=== PATIENT | male | born 1965 | race Caucasian/White ===

== ENCOUNTER 2017-07-01 09:42 | Observation (INO) | payer OTHER ==
[2017-07-01] MEDS ORDERED: CEFAZOLIN 2 GM/50 ML (PMX) 50 ML IVPB (10:30)
[2017-07-01] MEDS ORDERED: SOD CHLORIDE 0.9% 1,000 ML IV (10:30)
[2017-07-01 10:45] LABS: ADD MAN DIFF? NO
[2017-07-01 10:49] LABS: BASOPHIL # 0.1 10^3/ul (0.0-0.1); BASOPHILS % 0.6 % (0.0-2.0); EOSINOPHILS % 0.3 % (0.0-7.0); HEMOGLOBIN 15.4 g/dl (14.0-18.0); LYMPHOCYTES # 1.9 10^3/ul (0.8-2.9); LYMPHOCYTES % 18.3 % (15.0-51.0); MEAN CORPUSCULAR HEMOGLOBIN 29.1 pg (29.0-33.0); MEAN CORPUSCULAR HGB CONC 34.2 g/dl (32.0-37.0); MEAN CORPUSCULAR VOLUME 84.9 fl (82.0-101.0); MEAN PLATELET VOLUME 9.5 fl (7.4-10.4); MONOCYTE # 0.8 10^3/ul (0.3-0.9); MONOCYTES % 7.5 % (0.0-11.0); NEUTROPHIL # 7.6 10^3/ul (1.6-7.5); PLATELET COUNT 423 10^3/UL (140-415); RED CELL DISTRIBUTION WIDTH 12.6 % (11.5-14.5)
[2017-07-01 10:49] LABS: WHITE BLOOD COUNT 10.4 10^3/ul (4.8-10.8)
[2017-07-01 11:10] LABS: INR 0.98; PARTIAL THROMBOPLASTIN TIME 29.7 Sec (25.0-35.0); PROTIME 13.1 Sec (11.9-14.9)
[2017-07-01 11:12] LABS: ALANINE AMINOTRANSFERASE 32 IU/L (13-69); ALBUMIN 4.6 g/dl (3.3-4.9); ALBUMIN/GLOBULIN RATIO 1.27; ALKALINE PHOSPHATASE 86 IU/L (42-121); ANION GAP 14 (8-16); ASPARTATE AMINO TRANSFERASE 27 IU/L (15-46); BILIRUBIN,INDIRECT 0.6 mg/dl (0-1.1); BILIRUBIN,TOTAL 0.6 mg/dl (0.2-1.3); CARBON DIOXIDE 25 mmol/L (21-31); CHLORIDE 105 mmol/L (97-110); GLUCOSE 108 mg/dl (70-220); TOTAL PROTEIN 8.2 g/dl (6.1-8.1)
[2017-07-01 11:13] LABS: BLOOD UREA NITROGEN 16 mg/dl (7-20); CALCIUM 9.5 mg/dl (8.4-10.2); CREATININE 1.02 mg/dl (0.61-1.24); POTASSIUM 3.8 mmol/L (3.5-5.1); SODIUM 140 mmol/L (135-144)
[2017-07-01] MEDS ORDERED: MIDAZOLAM 1 MG/ML 2 ML INJ (11:54)
[2017-07-01] MEDS ORDERED: ROPIVACAINE 0.5 % 30 ML VIAL ×2 (11:54→12:22)
[2017-07-01] MEDS ORDERED: FENTAnyl 50 MCG/ML VIAL ×2 (11:54→14:06)
[2017-07-01] MEDS ORDERED: PROPOFOL 20 ML (11:54)
[2017-07-01] MEDS ORDERED: ROCURONIUM 50 MG INJ (12:22)
[2017-07-01] MEDS ORDERED: POLYMYXIN/BACITRACIN 1L IRRIG (12:34)
[2017-07-01] MEDS ORDERED: DEXAMETHASONE 4 MG/ML 1 ML INJ (12:53)
[2017-07-01] MEDS ORDERED: METOCLOPRAMIDE 10 MG INJ (12:53)
[2017-07-01] MEDS ORDERED: KETOROLAC 30 MG INJ (12:53)
[2017-07-01] MEDS ORDERED: ONDANSETRON 4 MG INJ (12:53)
[2017-07-01] MEDS ORDERED: CEFAZOLIN 1 GM INJ (12:53)
[2017-07-01] MEDS ORDERED: SUGAMMADEX SODIUM 200 MG/2 ML VIAL IV (12:54)
[2017-07-01] MEDS: POLYMYXIN/BACITRACIN 1L IRRIG IRR (13:20)
[2017-07-01] MEDS ORDERED: DIPHENHYDRAMINE 50 MG INJ IV (13:30)
[2017-07-01] MEDS ORDERED: EPHEDrine SULFATE 50 MG/5 ML SYG IV (13:30)
[2017-07-01] MEDS ORDERED: FENTAnyl 50 MCG/ML VIAL IV ×3 (13:30)
[2017-07-01] MEDS ORDERED: hydrALAzine 20 MG INJ IV ×2 (13:30→17:00)
[2017-07-01] MEDS ORDERED: OXYCODONE/ACETAMINOPHEN (5/325) TAB PO ×2 (13:30)
[2017-07-01] MEDS ORDERED: HYDROmorphONE (0.2 MG/ML) 10ML SYG IV ×2 (13:30)
[2017-07-01] MEDS ORDERED: METOCLOPRAMIDE 10 MG INJ IV (13:30)
[2017-07-01] MEDS ORDERED: LABETALOL HCL 20MG INJ IV (13:30)
[2017-07-01] MEDS ORDERED: MEPERIDINE 25 MG INJ IV (13:30)
[2017-07-01] MEDS ORDERED: ONDANSETRON 4 MG INJ IV ×2 (13:30→15:00)
[2017-07-01] MEDS ORDERED: ACETAMINOPHEN 1000MG/100ML IV 100 ML (13:44)
[2017-07-01] MEDS ORDERED: HYDROmorphONE 0.2 MG/ML PCA IV (14:00)
[2017-07-01] MEDS ORDERED: NALOXONE (0.4 MG/ML) INJ IV (14:00)
[2017-07-01] MEDS: HYDROmorphONE (0.2 MG/ML) 10ML SYG IV ×3 (14:30→15:36)
[2017-07-01] MEDS: HYDROmorphONE 0.2 MG/ML PCA IV (15:04)
[2017-07-01] MEDS: D5W-0.45 NACL + KCL 20 MEQ 1,000 ML IV (16:52)
[2017-07-01 20:21] LABS: ALANINE AMINOTRANSFERASE 30 IU/L (13-69); ALBUMIN 4.4 g/dl (3.3-4.9); ALBUMIN/GLOBULIN RATIO 1.46; ALKALINE PHOSPHATASE 74 IU/L (42-121); ANION GAP 18 (8-16); ASPARTATE AMINO TRANSFERASE 29 IU/L (15-46); BILIRUBIN,INDIRECT 0.7 mg/dl (0-1.1); BILIRUBIN,TOTAL 0.7 mg/dl (0.2-1.3); BLOOD UREA NITROGEN 13 mg/dl (7-20); CALCIUM 8.4 mg/dl (8.4-10.2); CARBON DIOXIDE 26 mmol/L (21-31); CHLORIDE 103 mmol/L (97-110); GLUCOSE 176 mg/dl (70-220); POTASSIUM 4.6 mmol/L (3.5-5.1); SODIUM 142 mmol/L (135-144); TOTAL PROTEIN 7.4 g/dl (6.1-8.1)
[2017-07-01] MEDS: INSULIN ASPART [NOVOLOG] 3 ML PEN SC (20:57)
[2017-07-01] MEDS ORDERED: INSULIN GLARGINE [LANtus] 3 ML PEN SC (21:00)
[2017-07-01] MEDS: INSULIN GLARGINE [LANtus] 3 ML PEN SC (21:56)
[2017-07-02] MEDS: D5W-0.45 NACL + KCL 20 MEQ 1,000 ML IV ×4 (00:56→17:26)
[2017-07-02] MEDS: ACCU-CHEK XX (02:00)
[2017-07-02 07:18] LABS: ANION GAP 14 (8-16); BLOOD UREA NITROGEN 9 mg/dl (7-20); CALCIUM 8.4 mg/dl (8.4-10.2); CARBON DIOXIDE 26 mmol/L (21-31); CHLORIDE 106 mmol/L (97-110); GLUCOSE 125 mg/dl (70-220); POTASSIUM 4.5 mmol/L (3.5-5.1); SODIUM 141 mmol/L (135-144)
[2017-07-02] MEDS: INSULIN ASPART [NOVOLOG] 3 ML PEN SC ×4 (08:00→21:00)
[2017-07-02] MEDS: HYDROmorphONE 0.2 MG/ML PCA IV (11:07)
[2017-07-02] MEDS ORDERED: GLUCOSE GEL 15 GRAM TUBE PO ×2 (13:00)
[2017-07-02] MEDS ORDERED: GLUCAGON 1 MG INJ IM (13:00)
[2017-07-02] MEDS ORDERED: GLUCOSE GEL 15 GRAM TUBE BUCCAL (13:00)
[2017-07-02] MEDS ORDERED: DEXTROSE 50% 50 ML SYRINGE IV ×2 (13:00)
[2017-07-02] MEDS: morphine 2 MG INJ IV ×3 (13:32→22:18)
[2017-07-02] MEDS: INSULIN GLARGINE [LANtus] 3 ML PEN SC (21:35)
[2017-07-02] MEDS: HYDROCODONE/APAP (10/325) TAB PO (23:29)
[2017-07-03] MEDS: D5W-0.45 NACL + KCL 20 MEQ 1,000 ML IV ×2 (01:36→10:38)
[2017-07-03] MEDS: ACCU-CHEK XX (01:59)
[2017-07-03 06:34] LABS: ADD MAN DIFF? NO
[2017-07-03 06:38] LABS: BASOPHILS % 0.2 % (0.0-2.0); EOSINOPHILS % 0.3 % (0.0-7.0); HEMOGLOBIN 14.4 g/dl (14.0-18.0); LYMPHOCYTES # 1.8 10^3/ul (0.8-2.9); LYMPHOCYTES % 18.7 % (15.0-51.0); MEAN CORPUSCULAR HEMOGLOBIN 28.9 pg (29.0-33.0); MEAN CORPUSCULAR HGB CONC 32.7 g/dl (32.0-37.0); MEAN CORPUSCULAR VOLUME 88.2 fl (82.0-101.0); MEAN PLATELET VOLUME 9.9 fl (7.4-10.4); MONOCYTE # 0.8 10^3/ul (0.3-0.9); MONOCYTES % 8.3 % (0.0-11.0); NEUTROPHILS % 72.1 % (39.0-77.0); PLATELET COUNT 366 10^3/UL (140-415); RED BLOOD COUNT 4.99 10^6/ul (4.70-6.10); RED CELL DISTRIBUTION WIDTH 12.7 % (11.5-14.5)
[2017-07-03 06:38] LABS: WHITE BLOOD COUNT 9.8 10^3/ul (4.8-10.8)
[2017-07-03 07:17] LABS: ANION GAP 13 (8-16); BLOOD UREA NITROGEN 4 mg/dl (7-20); CALCIUM 8.6 mg/dl (8.4-10.2); CARBON DIOXIDE 26 mmol/L (21-31); CHLORIDE 106 mmol/L (97-110); CREATININE 0.72 mg/dl (0.61-1.24); GLUCOSE 137 mg/dl (70-220); SODIUM 141 mmol/L (135-144)
[2017-07-03] MEDS: INSULIN ASPART [NOVOLOG] 3 ML PEN SC ×4 (08:00→21:00)
[2017-07-03] MEDS: PANTOPRAZOLE 40 MG INJ IV (08:56)
[2017-07-03] MEDS: SOD CHLORIDE 0.9% 100 ML (12:13)
[2017-07-03] MEDS: IOHEXOL 300MG/ML 150 ML BTL (12:14)
[2017-07-03] MEDS: INSULIN GLARGINE [LANtus] 3 ML PEN SC (21:32)
[2017-07-04] MEDS: ACCU-CHEK XX (02:00)
[2017-07-04] MEDS: PANTOPRAZOLE 40 MG INJ IV (05:35)
[2017-07-04 06:33] LABS: ADD MAN DIFF? NO
[2017-07-04 06:41] LABS: WHITE BLOOD COUNT 9.4 10^3/ul (4.8-10.8)
[2017-07-04 06:41] LABS: BASOPHIL # 0.1 10^3/ul (0.0-0.1); BASOPHILS % 0.5 % (0.0-2.0); EOSINOPHILS # 0.1 10^3/ul (0.0-0.5); HEMATOCRIT 46.7 % (42.0-52.0); HEMOGLOBIN 15.1 g/dl (14.0-18.0); LYMPHOCYTES # 2.2 10^3/ul (0.8-2.9); LYMPHOCYTES % 23.3 % (15.0-51.0); MEAN CORPUSCULAR HEMOGLOBIN 28.4 pg (29.0-33.0); MEAN CORPUSCULAR HGB CONC 32.3 g/dl (32.0-37.0); MEAN CORPUSCULAR VOLUME 87.8 fl (82.0-101.0); MEAN PLATELET VOLUME 9.9 fl (7.4-10.4); MONOCYTE # 0.8 10^3/ul (0.3-0.9); MONOCYTES % 8.1 % (0.0-11.0); NEUTROPHIL # 6.2 10^3/ul (1.6-7.5); NEUTROPHILS % 66.6 % (39.0-77.0); PLATELET COUNT 381 10^3/UL (140-415); RED BLOOD COUNT 5.32 10^6/ul (4.70-6.10); RED CELL DISTRIBUTION WIDTH 12.6 % (11.5-14.5)
[2017-07-04 07:02] LABS: ANION GAP 15 (8-16); BLOOD UREA NITROGEN 8 mg/dl (7-20); CALCIUM 8.8 mg/dl (8.4-10.2); CARBON DIOXIDE 29 mmol/L (21-31); CHLORIDE 105 mmol/L (97-110); CREATININE 0.89 mg/dl (0.61-1.24); GLUCOSE 94 mg/dl (70-220); POTASSIUM 4.3 mmol/L (3.5-5.1); SODIUM 145 mmol/L (135-144)
[2017-07-04] MEDS: INSULIN ASPART [NOVOLOG] 3 ML PEN SC ×4 (07:58→21:00)
[2017-07-04] MEDS: HYDROCODONE/APAP (10/325) TAB PO ×2 (11:53→19:02)
[2017-07-04] MEDS: morphine 2 MG INJ IV ×2 (13:14→20:34)
[2017-07-04] MEDS: INSULIN GLARGINE [LANtus] 3 ML PEN SC (21:47)
== END 2017-07-04 22:09 | disposition home or self-care (01) ==
LOC: SDS 09:42 → REC 17:30 → PP2 18:20
PROVIDERS: Surgery Surgical Oncology
DX: K43.6 Other and unspecified ventral hernia with obstruction, without gangrene (principal); E11.9 Type 2 diabetes mellitus without complications; I10 Essential (primary) hypertension; E78.5 Hyperlipidemia, unspecified
CPT/HCPCS: 49561; 71045; 71260; 80048; 80053; 82962; 83036; 85025; 85610; 85730; 88304; 93005; 99217; G0378